=== PATIENT | female | born 1940 | race African-American/Black ===

== ENCOUNTER → 2017-06-30 | Day surgery (SDC) | payer MEDICARE, OTHER ==
[~2017-06-30] MED LIST: CALAN SR180 MG PO; FENTANYL CITRATE/PF 100MCG/2 ML INJ ONE; MIDAZOLAM HCL 2 MG/2 ML VIAL ONE; OR PHACO EYE KIT ONE; PREOP PHACO EYE KIT ONE; VERAPAMIL ER120 MG; VITAMIN D PO
== END | disposition home or self-care (01) ==
LOC: OR 12:16
PROVIDERS: ATTEND Ophthalmology
DX: H25.11 Age-related nuclear cataract, right eye (principal); I10 Essential (primary) hypertension
CPT/HCPCS: 66984; J2250; V2632